=== PATIENT | male | born 1975 | race Caucasian/White ===

== ENCOUNTER 2021-02-23 19:14 | Emergency (ER) | payer BC ==
[~2021-02-23] VITALS: Ht 175.3 cm; Wt 99.8 kg
[2021-02-23] MEDS ORDERED: CASIRIVIMAB/IMDEVIMAB 10 ML in SODIUM CHLORIDE 0.9% 100 ML IV ONE (20:30)
[2021-02-23] MEDS ORDERED: ACETAMINOPHEN 325 MG TAB PO ONE (21:30)
[2021-02-23] MEDS ORDERED: ACETAMINOPHEN 325 MG TAB ONE (21:31)
== END 2021-02-23 21:28 | disposition home or self-care (01) ==
LOC: ER 19:52
DX: R05 Cough (principal); U07.1 COVID-19; I10 Essential (primary) hypertension; E78.5 Hyperlipidemia, unspecified
CPT/HCPCS: 99282; J7050; U0002